=== PATIENT | male | born 1965 | race Caucasian/White ===

== ENCOUNTER 2023-12-13 16:42 | Emergency (ER) | payer BC ==
[2023-12-13] MEDS ORDERED: Tetracaine 0.5% PF 4 ML BOT ONE (16:47)
[2023-12-13] MEDS ORDERED: Fluorescein Opthalmic Strip ONE (16:48)
[2023-12-13] MEDS ORDERED: Erythromycin Base 0.5% Ophth Oint 3.5 gm Tube ONE (17:16)
== END 2023-12-13 17:23 | disposition home or self-care (01) ==
LOC: BURERS 16:42
DX: T15.01XA Foreign body in cornea, right eye, initial encounter (principal); I10 Essential (primary) hypertension; W45.8XXA Other foreign body or object entering through skin, initial encounter
CPT/HCPCS: 65220; 99283